=== PATIENT | male | born 1965 | race African-American/Black ===

== ENCOUNTER 2018-12-13 07:12 | Emergency (ER) | payer MEDICAID ==
[~2018-12-13] VITALS: Ht 195.6 cm; Wt 122.0 kg
[2018-12-13] MEDS ORDERED: ATEN100T PO (07:33)
[2018-12-13] MEDS ORDERED: THALITONE (07:33)
[2018-12-13] MEDS ORDERED: AMLO10TA80 PO (07:33)
[2018-12-13] MEDS ORDERED: OMEP40CA34 PO (07:33)
[2018-12-13 09:01] LABS: BASOPHILS % 0.5 % (0.0-2.0); EOSINOPHILS % 3.5 % (0.0-5.0); HEMATOCRIT. 35.9 % (42.0-52.0); HEMOGLOBIN. 12.1 g/dL (14.0-18.0); LYMPHOCYTES % 18.6 % (20.0-50.0); MEAN CORPUSCULAR HEMOGLOBIN 29.2 pg (28.0-32.0); MEAN CORPUSCULAR VOLUME 86.6 fL (80.0-94.0); MEAN PLATELET VOLUME 7.7 fl (7.4-10.4); MONOCYTES % 6.4 % (2.0-8.0); PLATELET 256 x1000/uL (130-400); RED BLOOD CELL COUNT 4.15 mill/uL (4.7-6.1); RED CELL DISTRIBUTION WIDTH 14.6 % (11.6-14.6)
[2018-12-13 09:03] LABS: CHLORIDE 109 mEq/L (98-107)
[2018-12-13 09:16] LABS: CLARITY URINE CLEAR (CLEAR); COLOR URINE YELLOW (YELLOW); KETONES URINE NEGATIVE (NEGATIVE); LEUKOCYTE ESTERASE URINE NEGATIVE (NEGATIVE); NITRITE URINE NEGATIVE (NEGATIVE); OCCULT BLOOD URINE NEGATIVE (NEGATIVE); PROTEIN URINE TRACE (NEGATIVE); SPECIFIC GRAVITY URINE 1.019 (1.005-1.030)
[2018-12-13 10:06] VITALS: BP 164/99
== END 2018-12-13 10:07 | disposition home or self-care (01) ==
LOC: ER 07:23
DX: M77.52 Other enthesopathy of left foot and ankle (principal); M77.51 Other enthesopathy of right foot and ankle
CPT/HCPCS: 36415; 73630; 99284

== ENCOUNTER 2019-01-15 09:45 | Emergency (ER) | payer MEDICAID ==
[~2019-01-15] VITALS: Ht 195.6 cm; Wt 122.0 kg
[~2019-01-15 09:45] MED LIST: AMLO10TA80 PO; ATEN100T PO; OMEP40CA34 PO; THALITONE
[2019-01-15] MEDS ORDERED: FUROSEMIDE 20MG/2ML VIAL IVP ONE (10:15)
[2019-01-15 10:36] LABS: BASOPHILS % 0.8 % (0.0-2.0); EOSINOPHILS % 2.8 % (0.0-5.0); HEMATOCRIT. 41.1 % (42.0-52.0); HEMOGLOBIN. 14.2 g/dL (14.0-18.0); LYMPHOCYTES % 15.1 % (20.0-50.0); MEAN CORPUSCULAR HEMOGLOBIN 29.6 pg (28.0-32.0); MEAN CORPUSCULAR VOLUME 85.8 fL (80.0-94.0); MEAN PLATELET VOLUME 8.2 fl (7.4-10.4); MONOCYTES % 10.3 % (2.0-8.0); PLATELET 282 x1000/uL (130-400); RED BLOOD CELL COUNT 4.78 mill/uL (4.7-6.1); RED CELL DISTRIBUTION WIDTH 15.4 % (11.6-14.6)
[2019-01-15 10:42] LABS: CHLORIDE 108 mEq/L (98-107)
[2019-01-15 14:40] VITALS: BP 142/91
== END 2019-01-15 14:45 | disposition home or self-care (01) ==
LOC: ER 09:45
DX: R60.0 Localized edema (principal); I10 Essential (primary) hypertension
CPT/HCPCS: 36415; 71045; 80048; 83880; 85025; 85379; 93970; 96374; 99284; J1940